=== PATIENT | female | born 1960 | race Caucasian/White ===

== ENCOUNTER → 2016-07-29 | Outpatient (CLI) | payer OTHER ==
[~2016-07-29] MED LIST: HYDR-5688 PO; LEVO25TA5 PO
[2016-07-29 13:18] LABS: BASO % 0.4 %; BASO ABS # 0.03 K/uL (0-0.2); COMPLETE YES; EOS % 2.3 %; HEMATOCRIT 44.3 % (37-47); LYMPH % 39.9 %; LYMPH ABS # 2.78 K/uL (1.2-3.4); MEAN CELL VOLUME 88.6 fL (80-100); MEAN CORPUSCULAR HGB CONC 33.9 g/dl (32-36); MEAN PLATELET VOLUME 10.8 fL (7.4-10.4); MONO % 7.9 %; NEUT % 49.5 %; PLATELET COUNT 263 K/uL (130-400); WHITE BLOOD COUNT 6.97 K/uL (4.8-10.8)
[2016-07-29 13:37] LABS: BLOOD UREA NITROGEN 21 mg/dl (7-18); BUN/CREATININE RATIO 24.8 (10-20); CALCIUM 8.9 mg/dl (8.5-10.1); CARBON DIOXIDE 29 mmol/L (21-32); CHLORIDE 105 mmol/L (98-107); CREATININE 0.86 mg/dl (0.60-1.20); GLUCOSE 88 mg/dl (70-99); POTASSIUM 3.7 mmol/L (3.5-5.1); SODIUM 142 mmol/L (136-145)
[2016-07-29 13:49] LABS: CHOLESTEROL 192 mg/dl (0-200); HDL CHOLESTEROL 65 mg/dl; LDL CHOLESTEROL CALCULATED 106 mg/dl; PHOSPHORUS 3.4 mg/dl (2.5-4.9); TRIGLYCERIDES 107 mg/dl (0-150); VERY LOW DENSITY LIPOPROT CALC 21 mg/dl
[2016-07-29 14:00] LABS: ESTIMATED AVERAGE GLUCOSE 128 mg/dl; HA1C FLAG Normal (Normal)
== END | disposition home or self-care (01) ==
LOC: C.LABMFLN 07:30
PROVIDERS: ATTEND Family Medicine
DX: R73.03 Prediabetes (principal); E78.5 Hyperlipidemia, unspecified; E03.9 Hypothyroidism, unspecified

== ENCOUNTER → 2017-09-13 | Outpatient (CLI) | payer OTHER ==
[~2017-09-13] MED LIST changes: -HYDR-5688 PO
[2017-09-13 19:22] LABS: ALBUMIN 4.1 gm/dl (3.4-5.0); BLOOD UREA NITROGEN 20 mg/dl (7-18); CALCIUM 9.1 mg/dl (8.5-10.1); CARBON DIOXIDE 30 mmol/L (21-32); CREATININE 0.92 mg/dl (0.60-1.20); GLUCOSE 83 mg/dl (70-99); POTASSIUM 3.8 mmol/L (3.5-5.1); SODIUM 139 mmol/L (136-145)
[2017-09-13 19:35] LABS: PHOSPHORUS 3.6 mg/dl (2.5-4.9)
[2017-09-14 06:38] LABS: HEMOGLOBIN A1C 5.9 % (4.5-5.6)
== END | disposition home or self-care (01) ==
LOC: C.LABMFLN 16:13
PROVIDERS: ATTEND Family Medicine
DX: R73.03 Prediabetes (principal); E03.9 Hypothyroidism, unspecified

== ENCOUNTER 2023-03-19 10:14 | Observation (INO) ==
--- NOTE | 2023-02-23 12:09 | PAT Medication Instructions ---
Medication Instructions Date of Service February 23, 2023 Home Medications Medication Instructions Recorded tretinoin 0.025 % topical cream 1 applic topical HS #45 grams 08/21/21 levothyroxine 25 mcg tablet 25 mcg PO QAM #90 tabs 04/24/22 temazepam 15 mg capsule See Rx Instructions .Route 01/19/23 .COMPLEX #60 caps semaglutide 1 mg/dose (4 mg/3 mL) 1 mg (0.75 mL) subcut .once a week 02/04/23 subcutaneous pen injector #3 mL multivitamin 1 tab PO QAM cinnamon bark 500 mg capsule 500 mg PO BID tretinoin 0.025 % topical cream 1 applic topical HS tumeric 100 mg-priscila 150 mg-olive 50 mg-oreg 150 mg-caprylate capsule 2 cap PO BID levothyroxine 25 mcg tablet 25 mcg PO QAM temazepam 15 mg capsule See Rx Instructions .Route .COMPLEX semaglutide 1 mg/dose (4 mg/3 mL) subcutaneous pen injector 1 mg (0.75 mL) subcut .once a week acetaminophen 650 mg tablet,extended release 650 mg PO Q12H PRN meloxicam 15 mg tablet 15 mg PO QAM STOP 7 days before surgery semaglutide 1 mg/dose (4 mg/3 mL) subcutaneous pen injector 1 mg (0.75 mL) subcut .once a week Continue as directed temazepam 15 mg capsule See Rx Instructions .Route .COMPLEX ASK your surgeon for instructions meloxicam 15 mg tablet 15 mg PO QAM STOP taking 2 weeks before surgery (or as soon as possible if surgery is within 2 weeks) cinnamon bark 500 mg capsule 500 mg PO BID tumeric 100 mg-priscila 150 mg-olive 50 mg-oreg 150 mg-caprylate capsule 2 cap PO BID STOP taking 24 hours before surgery tretinoin 0.025 % topical cream 1 applic topical HS DO NOT take the morning of surgery multivitamin 1 tab PO QAM Take morning of surgery With a small sip of water, OTHERWISE NOTHING TO EAT OR DRINK AFTER MIDNIGHT: levothyroxine 25 mcg tablet 25 mcg PO QAM acetaminophen 650 mg tablet,extended release 650 mg PO Q12H PRN(if needed) Take evening before surgery acetaminophen 650 mg tablet,extended release 650 mg PO Q12H PRN(if needed) Other Notes If you have any questions please call us at [phone] or [phone] or [phone] or [phone]
--- NOTE | 2023-02-25 08:16 | Anesthesiology Consultation ---
Date of Service February 25, 2023 Assessment & Plan (1) Encounter for pre-operative examination: - Check BSG AM DOS - Infectious disease screening: Per assessment on 02/25/23: No known infectious disease contacts or current infectious disease symptoms. No noted Covid positive test result in past 90 days. - Outpatient joint assessment: Pt currently scheduled for inpatient pathway. If surgeon requests review for outpatient joint pathway, patient is an acceptable candidate for outpatient joint program from anesthesia standpoint pending surgeon's office assessment that patient is motivated, has good support and completes Same Day Joint Program preop requirements. - Semaglutide instructions: Patient takes on Wednesdays. Patient informed at PAT visit to stop 7 days prior to surgery- voiced understanding. DOS 03/19/23. Advised last dose to be 03/10/23. Patient advised to check with prescriber to see if alternative diabetic management recommendations while holding/restarting Semaglutide. Chart Review Chart Review: Acceptable Risk for Surgery and Patient seen in Pre Admission Testing Teaching & Discussion Pre-Anesthesia Teaching/Discussion Notes: Instructed NPO after midnight before surgery,except medications with 15 cc of water. Medication instructions provided according to the PAT guidelines. History Surgery Operation Date: 03/19/23 13:50 Proposed Procedures p Left Total Knee Arthroplasty - Arsen Benson, Height/Weight Height: 5 ft 3.5 in Weight: 76.4 kg Allergies Allergy/AdvReac Type Severity Reaction Status Date / Time amoxicillin Allergy Unknown Itching Verified 02/25/23 08:13 Medications Home Medications Medication Instructions Recorded Confirmed Last Taken multivitamin 1 tab PO QAM 09/22/19 02/15/23 09/26/19 20:00 cinnamon bark 500 mg capsule 500 mg PO BID 12/20/19 02/15/23 Unknown tretinoin 0.025 % topical cream 1 applic topical HS #45 grams 08/21/21 02/15/23 Unknown tumeric 100 mg-priscila 150 mg-olive 2 cap PO BID 08/21/21 02/15/23 Unknown 50 mg-oreg 150 mg-caprylate capsule levothyroxine 25 mcg tablet 25 mcg PO QAM #90 tabs 04/24/22 02/15/23 Unknown temazepam 15 mg capsule See Rx Instructions .Route 01/19/23 02/15/23 Unknown .COMPLEX #60 caps semaglutide 1 mg/dose (4 mg/3 mL) 1 mg (0.75 mL) subcut .once a week 02/04/23 02/15/23 Unknown subcutaneous pen injector #3 mL acetaminophen 650 mg 650 mg PO Q12H PRN Pain 02/15/23 02/15/23 Unknown tablet,extended release meloxicam 15 mg tablet 15 mg PO QAM 02/15/23 02/15/23 Unknown Past Medical History Medical History Chronic insomnia Hyperlipidemia Hypothyroidism Type 2 diabetes mellitus Weekly Semaglutide (Wednesdays) Past Family History Family History Brother Family history of diabetes mellitus Seizures Sister Diabetes Family history of diabetes mellitus Grandfather (Paternal) Myocardial infarction Mother Dyslipidemia Hypertension Father Leukemia Grandfather (Maternal) Stroke Other No family history of adverse response to anesthesia Past Surgical History Surgical History H/O section H/O colonoscopy H/O foot surgery BL x4 History of anesthesia reaction Awareness with knee/shoulder scopes History of appendectomy History of arthroscopy of left knee x2 Left foot first metatarsal screw removal (09/27/19): MAC at [facility] History of arthroscopy of left shoulder History of dental surgery Nausea and vomiting after administration of anesthetic agent Past Anesthesia History No Family Hx of Anesthesia Complications and Other (Awareness with knee/shoulder scopes ("woke up")) History of PONV No Hx of Motion Sickness and History of PONV Social History Smoking Status: Never smoker Do You Dip or Chew Tobacco: No Hx Alcohol Use: Yes Alcohol type: wine alcohol intake frequency: a few times a week (At most) Hx Substance Use: No substance use type: does not use Review of Systems Patient denies chest pain, shortness of breath, dyspnea on exertion, fever, chills, cough, wheezing, palpitations. Physical Exam Vital Signs VITALS BP 125/75 (per patient, baseline BP low-normal range per patient) P 73 TEMP 97.8 SP02 97%RA RESP 16 PHYSICAL Full cervical extension range of motion. Full TMJ range of motion. TMD 3 finger breaths Mallampati Score 2 Dentition: intact, Several caps/crowns Lungs: clear throughout to auscultation Cardiac: regular rate and rhythm, no murmurs noted Spine: normal Carotid arteries: negative bruit Extremities: no LE edema Lab Results Anesthesia Preop Results Results Anesthesia Widget: WBC 6.79 K/ul (4.8-10.8) 02/25/23 Hgb 14.5 g/dl (12.0-16.0) 02/25/23 Hct 43.9 % (37.0-47.0) 02/25/23 Plt 284 K/uL (130-400) 02/25/23 Na 141 mmol/L (136-145) 02/25/23 K 4.7 mmol/L (3.5-5.1) 02/25/23 Cl 105 mmol/L (98-107) 02/25/23 CO2 30 mmol/L (21-32) 02/25/23 BUN 22 mg/dl (6-23) 02/25/23 Creat 0.86 mg/dl (0.6-1.2) 02/25/23 Glucose Level 95 mg/dl (70-99(Fasting)) 02/25/23 PT 10.4 Seconds (9.0-12.0) 02/25/23 PTT 26.0 Seconds (21.0-31.0) 02/25/23 INR 0.9 (0.9-1.1) 02/25/23 TSH 2.353 uIu/ml (0.300-4.500) 01/14/23 HA1c 6.1 % (4.5-5.6) H 02/25/23 Blood Type B Positive 02/25/23 Antibody Screen NEGATIVE 02/25/23 Testing Electrocardiogram Date: 02/25/23 NSR at 76bpm. iRBBB. No significant change compared to 03/03/2016 per leadership development manager comparison. Chest X-Ray Date: 02/25/23 Findings: + NAD
--- NOTE | 2023-03-18 06:46 | History & Physical Report ---
Date of Service March 18, 2023 Assessment & Plan (1) Osteoarthritis of left knee: We will proceed with a left total knee arthroplasty. Postoperatively she will be started on aspirin for DVT prophylaxis and kept overnight in the hospital for postop medical management. She plans to use energy physical therapy upon discharge. History of Present Illness Chief Complaint: Osteoarthritis of the left knee. Primary Care Provider: NAS Sellers Arabella is a pleasant 62-year-old female who has had 2 previous arthroscopies on her left knee. Unfortunately, she is still having left knee pain. Most of her knee pain is located laterally. It is really affecting her daily activities. She had an MRI of her left knee, which shows reactive bone edema in the lateral compartment. There is also an extruded lateral meniscus tear. After failed extensive conservative treatment, she has elected proceed with a left total knee arthroplasty.. Allergies Allergy/AdvReac Type Severity Reaction Status Date / Time amoxicillin Allergy Unknown Itching Verified 02/25/23 08:13 Home Medications Medication Instructions Recorded Confirmed Type multivitamin 1 tab PO QAM 09/22/19 02/15/23 History cinnamon bark 500 mg capsule 500 mg PO BID 12/20/19 02/15/23 History tretinoin 0.025 % topical cream 1 applic topical HS #45 grams 08/21/21 02/15/23 Rx tumeric 100 mg-priscila 150 mg-olive 2 cap PO BID 08/21/21 02/15/23 History 50 mg-oreg 150 mg-caprylate capsule levothyroxine 25 mcg tablet 25 mcg PO QAM #90 tabs 04/24/22 02/15/23 Rx temazepam 15 mg capsule See Rx Instructions .Route 01/19/23 02/15/23 Rx .COMPLEX #60 caps acetaminophen 650 mg 650 mg PO Q12H PRN Pain 02/15/23 02/15/23 History tablet,extended release meloxicam 15 mg tablet 15 mg PO QAM 02/15/23 02/15/23 History semaglutide 1 mg/dose (4 mg/3 mL) 1 mg (0.75 mL) subcut .once a week 03/09/23 Rx subcutaneous pen injector #3 mL Past Med/Surg History Medical History Type 2 diabetes mellitus Weekly Semaglutide (Wednesdays) Chronic insomnia Hyperlipidemia Hypothyroidism Surgical History Nausea and vomiting after administration of anesthetic agent History of anesthesia reaction Awareness with knee/shoulder scopes History of arthroscopy of left knee x2 Left foot first metatarsal screw removal (09/27/19): MAC at [facility] [place] History of arthroscopy of left shoulder History of appendectomy H/O foot surgery BL x4 History of dental surgery H/O section H/O colonoscopy Family History Brother Family history of diabetes mellitus Seizures Sister Diabetes Family history of diabetes mellitus Grandfather (Paternal) Myocardial infarction Mother Dyslipidemia Hypertension Father Leukemia Grandfather (Maternal) Stroke Other No family history of adverse response to anesthesia Social History Smoking Status: Never smoker Second Hand Exposure: No; Do You Dip or Chew Tobacco: No; Tobacco Cessation Education Requested by Patient: No Hx Alcohol Use: Yes Alcohol type: wine Hx Substance Use: No Preferred Language: Ethiopian Communication Ability: Effective Ged Preparation Teacher Required: No Beliefs That Will Affect Care: None marital status: Current Living Situation: Spouse Feels Safe at Home: Yes Safety Concerns: Feels Safe At This Time Dental Care, Regularly: Yes Physical Activity Frequency: 3-4 Times per Week Seatbelt Use: always Assistive Devices: Glasses Review of Systems All systems reviewed & are unremarkable except as noted in HPI & below. Physical Exam Physical examination of the left knee, she has range of motion of 0 to 120 degrees. No instability. Pain over the distal medial femoral condyle and over the medial joint line.. Constitutional WD/WN, vitals as above Eyes PERRL, conjunctivae normal, anicteric sclerae ENMT external ear and nose normal, oropharynx normal Neck trachea midline, no thyromegaly Respiratory normal respiratory effort Cardiovascular RRR, no murmur, no edema Gastrointestinal (Abdomen) normal bowel sounds, soft, nontender, no hepatosplenomegaly Psychiatric A+Ox3, euthymic affect Results & Data Results & Data Laboratory Results . Diagnostic Findings X-rays of the left knee show some joint space narrowing and osteophyte formation MRI of the left knee shows lateral compartment arthritis. PG Care Time/CCT Total # of Minutes Spent Total Time Spent with Patient: Total time spent is greater than 50% in coordination of care (as documented) at patient's floor/unit and/or counseling patient: Coding Level of Care Code None Diagnoses Osteoarthritis of left knee M17.12
[~2023-03-19 10:14] MED LIST changes: +ACETAMINOPHEN 500 MG TAB PO SCH; +ALLERGY Noted to ORDERED Medication SCH; +BUPIVACAINE 0.5 % 5 MG/1 ML PF 10ML VIAL ONE; +FAMOTIDINE 20 MG TAB PO SCH; +GABAPENTIN 600 MG DOSE PO SCH; +Ketorolac (*for OR use only*) 30 MG, dexAMETHasone 4 MG, KETAMINE HCL (**OR use only) 1... INFIL SCH; -LEVO25TA5 PO; +LR 500ML BOLUS, THEN 15ML/HR IV SCH; +LR 60ML/HR IV SCH; +ROPIVACAINE 0.5% 5 MG/ML 30 ML VIAL ONE; +TRANEXAMIC ACID 1,000 MG **IV Intra-op IV SCH; +TRANEXAMIC ACID 1,000 MG **IV Pre-op IV SCH; +ceFAZolin 2000MG 2,000 MG/15 ML SYR IV SCH; +dexAMETHasone 4 MG TAB PO SCH
--- NOTE | 2023-03-19 11:06 | History & Physical Bridge Note ---
Date of Service March 19, 2023 History & Physical Bridge Note I have examined the patient, reviewed the History & Physical and in the interval since the performance of the History & Physical I have noted the following changes of clinical significance: no changes noted
[2023-03-19] MEDS ORDERED: MIDAZOLAM HCL 1 MG/ML 2ML VIAL ONE (11:11)
[2023-03-19] MEDS ORDERED: fentaNYL citrate PF 100 MCG/2 ML VIAL ONE (11:11)
[2023-03-19] MEDS ORDERED: ceFAZolin 2,000 MG/15 ML IV PUSH IV ONE (11:25)
[2023-03-19] MEDS ORDERED: Nursing to Pharmacy Communication SCH (11:30)
[2023-03-19] MEDS ORDERED: ORTHO JOINT ANESTHETIC ONE (11:33)
[2023-03-19] MEDS ORDERED: ONDANSETRON INJ 2 MG/ML 2 ML VIAL ONE (11:35)
[2023-03-19] MEDS ORDERED: PROPOFOL IV EMULSION 10 MG/ML 20 ML VIAL IV ONE ×2 (11:35→11:40)
[2023-03-19] MEDS ORDERED: fentaNYL citrate PF 100 MCG/2 ML VIAL IV PRN (12:02)
[2023-03-19] MEDS ORDERED: ePHEDrine sulfate 50 MG/ML AMP IV PRN (12:02)
[2023-03-19] MEDS ORDERED: ATROPINE SULFATE 0.1 MG/ML 10ML SYR IV PRN (12:02)
[2023-03-19] MEDS ORDERED: ONDANSETRON INJ 2 MG/ML 2 ML VIAL IV PRN ×2 (12:02→15:39)
[2023-03-19] MEDS ORDERED: diphenhydrAMINE 50 MG/ML VIAL ONE (13:25)
--- NOTE | 2023-03-19 13:37 | Operative Report ---
PG Post Operative Report Pre & Post Diagnosis Operation Date: 03/19/23 12:00 Pre-Op Diagnosis: Osteoarthritis of left knee Post-Op Diagnosis: Osteoarthritis of left knee I identified the patient and participated in the time-out.: Yes Procedure Operation Date: 03/19/23 12:00 Actual Procedures p Left Total Knee Arthroplasty(Left) - Arsen Benson DO Surgeon Arsen Benson DO Printing Sign Machine Operator Arsen Grimm PA-C Estimated Blood Loss 30 Findings Consistent with Post-Op Diagnosis Specimens Left femoral tibial bone Description of Procedure Implants used: I used a Renea Persona total knee arthroplasty system with a size 7 standard CR femur, E tibia, 31 oval patella, and a size 11 medial congruent polyethylene bearing. All components were cemented in place with Biomet cement. Arabella arrived [facility] for the above procedure. She was seen in the preoperative holding area and the operative extremity was identified and signed. She was given a preoperative antibiotic, TXA, a spinal anesthetic and an adductor nerve block. She was taken back to the operating room and laid on the table in supine position. She was given basic sedation. The operative knee was then prepped and draped in sterile fashion. A timeout was done, and the patient and the operative extremity was properly identified. A midline incision was made directly over the patella. Dissection was taken down to the extensor mechanism. A midvastus arthrotomy was used. The medial retinaculum was released and the fat pad was mostly excised. The knee was flexed and the ACL, PCL, and meniscus were removed. A drill was sent down the center of the femoral canal followed by an intramedullary huong. Off that huong a distal femoral cutting block was placed. 9 mm was resected off the distal femur at 5 of valgus. A posterior referencing AP sizing guide was then placed on the distal femur. The femur measured to be a size 7. 2 drill holes were placed in 3 of external rotation. A 4-in-1 cutting block was then impacted into place. Anterior, posterior, and chamfer cuts were then made. The proximal tibia was then exposed. An external tibial alignment guide was placed. A tibial cut guide was then anchored in place and the proximal tibia was then resected. The posterior aspect of the knee was then opened up and any additional meniscus fragments and osteophytes were removed. The tibia measured to be a size E. The tibial plate was then placed in the appropriate rotation and the tibia was drilled and punched. Trial components were then placed. I used a size 11 medial congruent polyethylene insert. The knee was brought through a full range of motion and felt to be stable. The peg holes for the femoral component were then drilled. The patella was then everted and 9 mm was resected off the posterior aspect of the patella. The patella measured to be a size 31 oval. 3 peg holes were then drilled. A trial patella was placed. The knee was once again brought through a full range of motion and felt to be stable. Trial components were then removed. The surrounding soft tissues were injected with 100 cc of an orthopedic pain control cocktail. All components were then cemented into place with Biomet cement. The final polyethylene insert was then snapped into place. Once cement was dry the tourniquet was deflated. Hemostasis was obtained. A dilute betadyne lavage was then done for 3 minutes. The joint was then irrigated with normal saline solution. The midvastus arthro rachel was then closed with #1 Vicryl suture. The skin was closed with 2-0 Vicryl, 3-0V lock suture, and mitul. A soft compressive dressing was placed. She was then transferred to a hospital bed and taken to the postanesthesia care unit in stable condition. She tolerated the procedure well. Arsen Grimm PA-C, was present for the entire procedure. He was critical for patient positioning, prepping, draping, retraction exposure, wound closure and application of sterile dressing. I attest to the content of the Intraoperative Record and any orders documented therein. Any exceptions are noted below.
--- NOTE | 2023-03-19 15:33 | Anesthesiology Progress Note ---
Date of Service March 19, 2023 Anesthesia Post Procedure Vital Signs Vital Signs: Temp Pulse Resp BP Pulse Ox O2 Del Method O2 Flow Rate 03/19/23 15:10 36.3 C L 60 16 94/51 L 94 Room Air 03/19/23 15:00 62 16 99/55 L 95 Room Air 03/19/23 14:50 65 14 97/51 L 95 Room Air 03/19/23 14:40 60 16 97/52 L 97 Room Air 03/19/23 14:30 64 14 94/54 L 98 Room Air 03/19/23 14:20 60 16 99/49 L 97 Room Air 03/19/23 14:10 62 18 105/57 L 99 Room Air 03/19/23 13:59 36.3 C L 70 16 91/56 L 100 Oxymask 6 03/19/23 10:56 36.8 C 79 18 138/72 97 Room Air Pain Intensity Left Knee: Pain Intensity: 2 Transfer of Care Handoff Completed per policy Notes Mental Status: alert / awake / arousable Patient Amnestic to Procedure: Yes Nausea / Vomiting: adequately controlled Pain: adequately controlled Airway Patency, RR, SpO2: stable & adequate BP & HR: stable & adequate Hydration State: stable & adequate Neuraxial Anesthesia: was administered and sensory block is resolving Anesthetic Complications: no major complications apparent and Pt Satisfied with anesthetic care
--- NOTE | 2023-03-19 15:34 | XRay Report ---
XR knee LT 1 or 2V routine HISTORY: 63 years-old Female Surgical Post Op left knee arthroplasty COMPARISON: None TECHNIQUE: 2 views of the left knee FINDINGS: Total joint arthroplasty and patellar surfacing. Anterior midline skin mitul with expected postoper ative soft tissue swelling and deep tissue air. Ill-defined calcifications within the suprapatellar t issues. No acute fracture or dislocation. IMPRESSION: Total joint arthroplasty with expected postoperative changes. ACT 112: Negative or not required by law. The above report was generated using voice recognition software. It may contain grammatical, syntax o r spelling errors. Electronically signed by: Axel Madrid M.D. 03/19/2023 3:32 PM
[2023-03-19] MEDS ORDERED: NALOXONE HCL 0.4 MG/1 ML VIAL/CARP IV PRN (15:39)
[2023-03-19] MEDS ORDERED: MAGNESIUM HYDROXIDE SUSP 30 ML UDC PO PRN (15:39)
[2023-03-19] MEDS ORDERED: bisacodyL 10 MG SUPP PR PRN (15:39)
[2023-03-19] MEDS ORDERED: METOCLOPRAMIDE HCL INJ 5 MG/ML 2 ML VIAL IV PRN (15:39)
[2023-03-19] MEDS ORDERED: HYDROmorphone INJ 0.5 MG/0.5 ML SYR IV PRN (15:39)
[2023-03-19] MEDS ORDERED: TEMAZEPAM 15 MG CAPSULE PO PRN (15:39)
[2023-03-19] MEDS ORDERED: PHARMACY GLYCEMIC MGMT CONSULT PRN (15:39)
[2023-03-19] MEDS ORDERED: GLUCOSE 40% GEL 15 GM TUBE PO PRN (16:15)
[2023-03-19] MEDS ORDERED: GLUCOSE 10 TAB/TUBE PO PRN (16:15)
[2023-03-19] MEDS ORDERED: GLUCAGON FOR INJ 1 MG VIAL IM PRN (16:15)
[2023-03-19] MEDS ORDERED: CARBOHYDRATES FOR HYPOGLYCEMIA PO PRN (16:15)
[2023-03-19] MEDS ORDERED: DEXTROSE 50% 50 ML SYRINGE IV PRN (16:15)
[2023-03-19] MEDS: SODIUM CHLORIDE 0.9% 1,000 ML IV SCH ×2 (16:26→23:20)
[2023-03-19] MEDS: KETOROLAC 30 MG/ML VIAL IV SCH ×2 (16:26→22:16)
[2023-03-19] MEDS: INSULIN ASPART PER UNIT CHARGE SC SCH ×2 (17:19→21:16)
[2023-03-19] MEDS: ACETAMINOPHEN 500 MG TAB PO SCH (18:15)
[2023-03-19] MEDS: oxyCODONE HCL IR 5 MG TAB (IMMEDIATE RELEASE) PO PRN (20:08)
[2023-03-19] MEDS: ASPIRIN 81 MG ECTAB PO SCH (20:43)
[2023-03-19] MEDS: DOCUSATE SODIUM 100 MG CAP PO SCH (20:44)
[2023-03-19] MEDS ORDERED: SENNA 8.6 MG TAB PO SCH (21:00)
[2023-03-19] MEDS: ceFAZolin 2000MG 2,000 MG/15 ML SYR IV SCH (21:11)
[2023-03-20] MEDS: oxyCODONE HCL IR 5 MG TAB (IMMEDIATE RELEASE) PO PRN ×2 (01:06→07:41)
[2023-03-20] MEDS: KETOROLAC 30 MG/ML VIAL IV SCH ×2 (03:06→10:44)
[2023-03-20] MEDS: ACETAMINOPHEN 500 MG TAB PO SCH ×2 (03:06→10:43)
[2023-03-20] MEDS: ceFAZolin 2000MG 2,000 MG/15 ML SYR IV SCH (03:07)
[2023-03-20] MEDS ORDERED: LEVOTHYROXINE SODIUM 25 MCG TABLET PO SCH (06:30)
[2023-03-20] MEDS: ASPIRIN 81 MG ECTAB PO SCH (07:40)
[2023-03-20] MEDS: DOCUSATE SODIUM 100 MG CAP PO SCH (07:41)
[2023-03-20] MEDS ORDERED: INSULIN ASPART PER UNIT CHARGE SC SCH (08:00)
[2023-03-20] MEDS ORDERED: MULTIVITAMIN TAB PO SCH (09:00)
--- NOTE | 2023-03-20 09:29 | Orthopedic Progress Note ---
Date of Service March 20, 2023 Assessment & Plan (1) Status post left knee replacement: Overall she is doing very well. She is not in much pain in the left knee. She will be seen by physical therapy today for ambulation and range of motion exercises. The nursing staff can change her dressing after physical therapy. She is on aspirin for DVT prophylaxis. She can be discharged home later today. She will follow-up orthopedics in 2 weeks. Subjective Arabella was seen and examined at bedside this morning. Overall she is doing fairly well. She is not having much pain in the left knee. She has been up and ambulate to the bathroom. She is no complaints.. Review of Systems All systems reviewed & are unremarkable except as noted in HPI & below. Physical Exam On physical examination of left knee, the dressing is clean and dry. Her leg is out full extension. She is at dorsiflexion plantarflexion of her left ankle.. Results & Data Results & Data Laboratory Results . Diagnostic Findings Postoperative x-rays of the left knee show the prosthesis to be in anatomic alignment without any evidence of fracture complication, or loosening.. PG Care Time/CCT Total # of Minutes Spent Total Time Spent with Patient: Total time spent is greater than 50% in coordination of care (as documented) at patient's floor/unit and/or counseling patient: Coding Level of Care Code 75101 Post Operative Follow-Up Diagnoses Status post left knee replacement Z96.652
--- NOTE | 2023-03-20 09:30 | Discharge Summary ---
Date of Service March 20, 2023 Admission HPI (Per Admitting) Arabella is a pleasant 62-year-old female who has had 2 previous arthroscopies on her left knee. Unfortunately, she is still having left knee pain. Most of her knee pain is located laterally. It is really affecting her daily activities. She had an MRI of her left knee, which shows reactive bone edema in the lateral compartment. There is also an extruded lateral meniscus tear. After failed extensive conservative treatment, she has elected proceed with a left total knee arthroplasty.. Admission Exam (Per Admitting) Physical examination of the left knee, she has range of motion of 0 to 120 degrees. No instability. Pain over the distal medial femoral condyle and over the medial joint line.. Principal Diagnosis Same as "Discharge Diagnosis" noted below under Discharge Instructions. Discharge Exam On physical examination of left knee, the dressing is clean and dry. Her leg is out full extension. She is at dorsiflexion plantarflexion of her left ankle.. Discharge Data Procedures Performed Operation Date: 03/19/23 12:00 Actual Procedures p Left Total Knee Arthroplasty(Left) - Arsen Benson DO Ordered Studies 03/19/23 05:00 US - OR guided needle placemen Routine Hospital Course (1) Status post left knee replacement: On March 19, 2023 Arabella arrived about in the hospital and underwent a left knee replacement without complication. She had a spinal anesthetic. Postoperatively she was started on aspirin for DVT prophylaxis and transferred to the general orthopedic floors. Her hospital course was uneventful. On postop day #1, her vital signs were stable and her pain was well controlled. She was able to participate well with physical therapy doing ambulation and range of motion exercises. She was then discharged home. She will follow-up orthopedics in 2 weeks. PG Care Time/CCT Total # of Minutes Spent Total Time Spent with Patient: Total time spent is greater than 50% in coordination of care (as documented) at patient's floor/unit and/or counseling patient: Discharge Plan Discharge Items Patient Disposition: Home - Home Health Services Reason For Visit: POST OP Discharge Diagnosis: Left knee replacement Activity: Per Instructions section Non-emergency contact: Surgeon Call non-emergency contact if: your wound has increased redness and your wound has increased drainage Follow-up/Referrals: Florencia Butt CRNP [Primary Care Provider] - Diet: Regular Addtl Attending Provider Instructions: Activity and Therapy Recommendations: * If you are using [facility] then therapy will be provided at your home until they feel you have accomplished all of your goals. * If you are using [facility] then Physical Therapy will be provided until they feel you are ready to start Outpatient Physical Therapy. * If you are not using home therapy then Outpatient Physical Therapy should start about 3-5 days from your day of surgery. Therapy will last about 6-10 weeks * It is important not to put a pillow under your knee when you are relaxing or sleeping. It is just as important to make sure you are getting your knee perfectly straight as it is to regain your knee bend. * You were shown a series of exercises in the hospital. Do these exercises three times each day including the exercises you were shown in physical therapy. * Get up and walk several times each day. For the first four weeks, try not to stand or walk for more than one hour at a time. If you do stand or walk for more than one hour, you will not hurt anything, but your leg will likely swe ll. * As you feel comfortable, you may change from the walker or crutches to a cane and then to independent walking. Medications: * Narcotic You will likely be sent home from the hospital with a prescription for the narcotic pain medication that worked best throughout your stay. * Aspirin Most patients will be required to take Aspirin 81mg twice a day for 6 weeks after surgery. This is obtained [id number] and a prescription is not necessary. * Cefadroxil -take the antibiotic twice a day for 10 days to help with infections. * Other medications may be prescribed for specific circumstances. If you have any questions, please call the office at . * Resume previous home medications unless otherwise instructed TEDs/Elastic Stockings: The white elastic stockings help limit swelling and prevent blood clots from forming in your legs.~ The more you wear them, the more they work. Wear them for six weeks. Dressing Care: The dressing can be changed after physical therapy on postop day #1. Daily dry dressing changes for a few days, especially if the incision is still draining some. If the incision is not draining then you may leave the mitul open to air. If there is a little bit of drainage or if the mitul are getting stuck on your clothing then cover the incision with a dry dressing. The mitul will be removed at your 2 week follow-up appointment. Showering: You may shower 5 days from the day of surgery as long as the incision is no longer draining. You may shower with the mitul exposed. Let soapy water run over the mitul and pat them dry. Do not scrub or soak the incision. Things To Watch For: * Drainage from the incision site that occurs more than one week after your surgery. * Increased redness at the incision site. * Fever above 102 degrees Fahrenheit. * Unusual chest pain or shortness of breath. * Call [facility] at with any of the above problems Follow-Up Visit: Follow-up with Dr. Benson's PA (Arsen Grimm) 2-3 weeks after your day of surgery. He will remove your mitul and answer any questions. If you have any additional questions or concerns, Dr Benson is usually in the office at the same time and will be available An appointment was probably scheduled when you signed-up for surgery in the office. If you have any questions call Office Instructions: More detailed instructions as well as Frequently Asked Questions were provided in a folder by our office when you signed-up for surgery. Please review these instructions when you get home. If you have any further questions or concerns, please feel free to call the office at [phone] Pending Studies at Discharge: No Stand-Alone Forms: My [facility] Medications and DC Order Prescriptions: New oxycodone 5 mg Tablet 5 mg PO Q4H PRN (Reason: pain) Qty: 30 0RF cefadroxil 500 mg capsule 500 mg PO BID 10 Days Qty: 20 0RF aspirin 81 mg Tablet,Delayed Release (Dr/Ec) 81 mg PO BID 42 Days Qty: 84 0RF Continued levothyroxine 25 mcg tablet 25 mcg PO QAM Qty: 90 3RF ixmwsms-cuxb-tuyyh-oreg-capryl 100 mg-150 mg- 50 mg-150 mg capsule 2 cap PO BID tretinoin 0.025 % cream 1 applic topical HS Qty: 45 2RF Rx Instructions: apply a pea sized amount to face nightly cinnamon bark 500 mg capsule 500 mg PO BID multivitamin Tablet 1 tab PO QAM acetaminophen 650 mg Tablet Extended Release 650 mg PO Q12H PRN (Reason: Pain) meloxicam 15 mg tablet 15 mg PO QAM Rx Instructions: Take with food temazepam [Restoril] 15 mg capsule See Rx Instructions .ROUTE .COMPLEX Rx Instructions: take 1 or 2 caps po at HS prn; Ozempic 1 mg/dose (4 mg/3 mL) pen injector 1 mg subcut .once a week Rx Instructions: wednesday masbmso-twah-ucdgg-oreg-capryl 100 mg-150 mg- 50 mg-150 mg Capsule 1 cap PO Admission Data Admit Date/Time: 03/19/23 13:58 Attending Provider: Arsen Benson Admit Provider: Arsen Benson Primary Care Provider: Florencia Butt
== END 2023-03-20 11:15 | disposition home health service (06) ==
LOC: ASU 10:14 → 3N 10:14